=== PATIENT | female | born 1950 | race Caucasian/White ===

== ENCOUNTER → 2017-03-15 | Outpatient (CLI) | payer OTHER ==
--- NOTE | 2017-03-16 02:05 | REP ---
Clinical: Trauma. Contusion. Technique: AP, lateral, bilateral oblique views of the right wrist. Findings: Age-related osteopenia and degenerative changes are appreciated. No acute fracture or dislocation. No subcutaneous emphysema or radiodense foreign body. Impression: Age-related degenerative changes. No obvious acute fracture or dislocation. If the patient remains symptomatic consider presumptive treatment and reevaluation in 5-7 days. Signed by Abdi Sultana MD 03/16/2017 01:56 A
--- NOTE | 2017-03-16 02:11 | REP ---
Clinical: Trauma. Contusion. Technique: AP, lateral, bilateral oblique views right hand . Findings: Age related arthritic changes are appreciated. No acute fracture or dislocation identified. No subcutaneous emphysema or radiodense foreign body. Impression: Age related arthritic changes. No acute fracture or dislocation. Signed by Abdi Sultana MD 03/16/2017 02:02 A
== END ==
LOC: M WUC 10:55
PROVIDERS: ATTEND Physician Assistant
DX: S60.211A Contusion of right wrist, initial encounter (principal); S60.221A Contusion of right hand, initial encounter; X58.XXXA Exposure to other specified factors, initial encounter; Y92.89 Other specified places as the place of occurrence of the external cause; Y93.89 Activity, other specified; Y99.8 Other external cause status

== ENCOUNTER → 2017-06-28 | Outpatient (CLI) | payer OTHER ==
--- NOTE | 2017-06-28 12:39 | REPMRS ---
Patient History The patient states she had a clinical breast exam in 2016.Patient is postmenopausal. Family history of breast cancer in sister at age 50 or over and breast cancer in maternal aunt at age 60. Took hormonal contraceptives for 4 years. Took unspecified hormones for 6 months. Digital Mammo Screening Bilat: June 28, 2017 - Exam #: [id number] Bilateral CC and MLO view(s) were taken. Technologist: Jasmin Moncada, Technologist Prior study comparison: June 24, 2016, digital woman screen mammo, performed at [facility]. June 24, 2015, digital woman screen mammo, performed at [facility]. FINDINGS: There are scattered fibroglandular densities. There has been no change in the appearance of the mammogram from the prior studies. There is a mild amount of residual fibroglandular tissue which is fairly symmetric. There is no interval development of dominant mass, architectural distortion, or clustered microcalcification suggestive of malignancy. ASSESSMENT: BI-RADS/ACR category 1 mammogram. Negative. Recommendation Routine screening mammogram in 1 year (for women over age 40). This mammogram was interpreted with the aid of an FDA-approved computer-aided dectection system. Electronically Signed By: Jose A Rios MD 06/28/17 [id number]
== END ==
LOC: M RAD 11:48
PROVIDERS: ATTEND Obstetrics & Gynecology Gynecology
DX: Z12.31 Encounter for screening mammogram for malignant neoplasm of breast (principal); Z78.0 Asymptomatic menopausal state; Z92.0 Personal history of contraception

== ENCOUNTER → 2017-07-14 | Outpatient (REF) | payer OTHER | LOC: M LAB REF 17:50 | PROVIDERS: ATTEND Family Medicine | DX: R76.8 Other specified abnormal immunological findings in serum (principal) ==

== ENCOUNTER → 2018-01-16 | Outpatient (REF) | payer OTHER ==
[2018-01-18 14:17] LABS: ANTINUCLEAR ANTIBODIES DIRECT Negative (Negative)
== END ==
LOC: M LAB REF 18:00
DX: R76.8 Other specified abnormal immunological findings in serum (principal)

== ENCOUNTER → 2018-06-29 | Outpatient (CLI) | payer MEDICARE, OTHER | LOC: M RAD 10:38 | DX: Z12.31 Encounter for screening mammogram for malignant neoplasm of breast (principal); Z80.3 Family history of malignant neoplasm of breast | CPT/HCPCS: 77067 ==

== ENCOUNTER → 2018-08-01 | Outpatient (REF) | payer MEDICARE, OTHER | LOC: M LAB REF 13:37 | PROVIDERS: ATTEND Physician Assistant | DX: J02.9 Acute pharyngitis, unspecified (principal) ==

== ENCOUNTER 2018-09-07 10:21 | Day surgery (SDC) | payer MEDICARE, OTHER ==
[~2018-09-07] VITALS: Ht 157.5 cm; Wt 67.9 kg
[~2018-09-07 10:21] MED LIST: CALC1TAB26 PO; COLA100C5 PO; COQ-100C2 PO; ESTR0.1C5; FLAX10002 PO; FLON1SPR; LANS15CA; LOTE0.5G OU; MIRA33504 PO; PROAAER10 INH; SIMV20TA2; SYST1SOL OU; TYLE500T78 PO; VITA100067 PO; VITA500T53 PO
[2018-09-07] MEDS ORDERED: PROPOFOL 200 MG/20 ML VIAL As Ordered ONE (10:42)
[2018-09-07] MEDS ORDERED: LIDOCAINE 2% INJ 100 MG/5 ML SDV (FOR ANES.) As Ordered ONE (10:43)
--- NOTE | 2018-09-07 11:15 | ROOR ---
Patient Name: Jacqueline Chandler Procedure Date: 09/07/2018 11:00 AM Date of : 1950 Age: 68 Room: [facility] Gender: Female Note Status: Finalized Procedure: Upper GI endoscopy Indications: Heartburn Providers: Kishore ANDREW MD Referring MD: Ortiz Oliver MD Requesting Provider: Medicines: Monitored Anesthesia Care Complications: No immediate complications. Procedure: Pre-Anesthesia Assessment: - The heart rate, respiratory rate, oxygen saturations, blood pressure, adequacy of pulmonary ventilation, and response to care were monitored throughout the procedure. The Endoscope was introduced through the mouth, and advanced to the second part of duodenum. The upper GI endoscopy was accomplished without difficulty. The patient tolerated the procedure well. Findings: Small Hiatal Hernia. Mild reflux esophagitis. The exam was otherwise without abnormality. Impression: - Small Hiatal Hernia. - Mild esophagitis. - The examination was otherwise normal. - No specimens collected. Recommendation: - Use Prevacid (lansoprazole) 30 mg PO daily. - Follow an antireflux regimen. Kishore Andrew MD Kishore ANDREW MD 09/07/2018 11:15:45 AM This report has been signed electronically. Number of Addenda: 0 Note Initiated On: 09/07/2018 11:00 AM Estimated Blood Loss: Estimated blood loss: none.
--- NOTE | 2018-09-07 11:30 | ROOR ---
Patient Name: Jacqueline Chandler Procedure Date: 09/07/2018 11:02 AM Date of : 1950 Age: 68 Room: [facility] Gender: Female Note Status: Finalized Procedure: Colonoscopy Indications: High risk colon cancer surveillance: Personal history of colonic polyps Providers: Kishore ANDREW MD Referring MD: Ortiz Oliver MD Requesting Provider: Medicines: Monitored Anesthesia Care Complications: No immediate complications. Procedure: Pre-Anesthesia Assessment: - The heart rate, respiratory rate, oxygen saturations, blood pressure, adequacy of pulmonary ventilation, and response to care were monitored throughout the procedure. The Colonoscope was introduced through the anus and advanced to the cecum, identified by appendiceal orifice and ileocecal valve. The colonoscopy was performed without difficulty. The patient tolerated the procedure well. The quality of the bowel preparation was good. Findings: The perianal and digital rectal examinations were normal. A diminutive polyp was found in the splenic flexure. The polyp was sessile. The polyp was removed with a jumbo cold forceps. Resection and retrieval were complete. Internal hemorrhoids were found during retroflexion. The hemorrhoids were medium-sized. Retroflexion in the right colon was performed. The exam was otherwise normal throughout the examined colon. Impression: - One diminutive polyp at the splenic flexure, removed with a jumbo cold forceps. Resected and retrieved. - Internal hemorrhoids. - The exam was otherwise normal to the cecum. Recommendation: - Repeat colonoscopy in 5 years for surveillance. Kishore Andrew MD Kishore ANDREW MD 09/07/2018 11:29:37 AM This report has been signed electronically. Number of Addenda: 0 Note Initiated On: 09/07/2018 11:02 AM Estimated Blood Loss: Estimated blood loss: none.
[2018-09-07 12:00] VITALS: BP 121/65
[2018-09-07] MEDS ORDERED: NS 1,000 ML IV ONE (12:30)
== END 2018-09-07 12:14 | disposition home or self-care (01) ==
LOC: M OPP 10:21
PROVIDERS: ATTEND Internal Medicine Gastroenterology
DX: Z86.010 Personal history of colon polyps (principal); D12.3 Benign neoplasm of transverse colon; K64.8 Other hemorrhoids; Z09 Encounter for follow-up examination after completed treatment for conditions other than malignant neoplasm; R12 Heartburn; K44.9 Diaphragmatic hernia without obstruction or gangrene; K21.9 Gastro-esophageal reflux disease without esophagitis; Z79.899 Other long term (current) drug therapy; Z88.8 Allergy status to other drugs, medicaments and biological substances; Z80.0 Family history of malignant neoplasm of digestive organs; Z80.3 Family history of malignant neoplasm of breast; Z80.1 Family history of malignant neoplasm of trachea, bronchus and lung; Z80.8 Family history of malignant neoplasm of other organs or systems

== ENCOUNTER → 2018-12-13 | Outpatient (CLI) | payer MEDICARE, OTHER ==
[~2018-12-13] MED LIST changes: +VITA500T17 PO; -VITA500T53 PO
--- NOTE | 2018-12-14 10:25 | REP ---
Chest two views HISTORY: Mid back pain Comparison: 09/30/2014 The lungs are clear. The heart is normal in size. The pulmonary vasculature is normal in appearance. The bony structure is intact. IMPRESSION: No acute disease. Electronically Signed by Mateusz Berman MD 12/14/2018 09:29 A
== END ==
LOC: M WUC 18:45
PROVIDERS: ATTEND Nurse Practitioner Family
DX: M54.9 Dorsalgia, unspecified (principal)

== ENCOUNTER → 2020-03-12 | Outpatient (REF) | payer MEDICARE, OTHER ==
[~2020-03-12] MED LIST changes: -SIMV20TA2; +SIMV20TA22
[2020-04-16 13:52] LABS: ANTINUCLEAR ANTIBODIES DIRECT See Separate Report; CYCLIC CITRULLINATED PEPTIDE See Separate Report UNITS
== END ==
LOC: M LAB REF 15:33
PROVIDERS: ATTEND Family Medicine
DX: R76.8 Other specified abnormal immunological findings in serum (principal)

== ENCOUNTER → 2020-10-13 | Outpatient (REF) | payer MEDICARE, OTHER ==
[2020-10-13 18:22] LABS: AMYLASE 50 U/L (25-115); LIPASE 147 U/L (73-393)
== END ==
LOC: M LAB REF 16:15
PROVIDERS: ATTEND Family Medicine
DX: R10.12 Left upper quadrant pain (principal)

== ENCOUNTER → 2020-10-23 | Outpatient (CLI) | payer MEDICARE, OTHER ==
[~2020-10-23] MED LIST changes: +GASTROGRAFIN SOLUTION 30ML (Q9963) As Ordered ONE; +ISOVUE-370 76% 100ML VIAL As Ordered ONE
--- NOTE | 2020-10-23 15:36 | REP ---
INDICATION: LUQ ABD PAIN. COMPARISON: None TECHNIQUE: Axial contrast-enhanced images of the abdomen using oral and 100 cc Isovue 370 intravenous contrast material. Precontrast images of the abdomen along with coronal and sagittal reformations obtained. This CT examination was performed using the following dose reduction techniques: Automated exposure control, adjustment of mA and/or kv according to the patient's size, and the use of iterative reconstruction technique. FINDINGS: Liver demonstrates multiple benign appearing cysts measuring up to 2.5 cm along with mild diffuse fatty infiltration. Spleen, pancreas, gallbladder, and bilateral adrenal glands are normal. Right kidney demonstrates 1 cm hypodensity likely representing cyst. Left kidney includes 10 cm upper pole cyst extending to the left upper quadrant. The kidneys are otherwise normal and without hydronephrosis or perinephric stranding and no nephroureterolithiasis. Visualized portions of the enteric system are normal. No ascites. No free air. No adenopathy. Abdominal aorta without aneurysm. Skeletal structures without acute process. Lung bases are clear. IMPRESSION: 1. Large 10 cm left renal cyst likely related to patient's symptoms. 1 cm right renal hypodensity likely cyst may warrant ultrasound follow-up. 2. Benign-appearing hepatic cysts. <Electronically signed by Abdi Sultana > 10/23/20 [id number]
== END ==
LOC: M RAD 13:39
PROVIDERS: ATTEND Family Medicine
DX: N28.1 Cyst of kidney, acquired (principal); R10.12 Left upper quadrant pain; D13.4 Benign neoplasm of liver
CPT/HCPCS: 74170; Q9963; Q9967

== ENCOUNTER → 2021-01-01 | Outpatient (CLI) | payer MEDICARE, OTHER ==
[~2021-01-01] MED LIST changes: +ACET-841 PO; +CETI10TA8 PO; +COQ-100C5 PO; +ESTR1MIS PV; -GASTROGRAFIN SOLUTION 30ML (Q9963) As Ordered ONE; -ISOVUE-370 76% 100ML VIAL As Ordered ONE; +LACT3000 PO; +MIRA3350 PO; +OSTE5TAB PO; +PROBCAP14 PO; +SIME125T PO; +[UNRECOGNIZED DRUG - OTHER]; +[UNRECOGNIZED DRUG - OTHER] TOP
== END ==
LOC: M LABSMTC 10:16
PROVIDERS: ATTEND Anesthesiology
DX: Z01.812 Encounter for preprocedural laboratory examination (principal)

== ENCOUNTER → 2021-01-06 | Day surgery (SDC) | payer MEDICARE, OTHER ==
[~2021-01-06] VITALS: Ht 157.5 cm; Wt 67.6 kg
[~2021-01-06] MED LIST changes: +LIDOCAINE 2% 100MG/5ML SDV (FOR ANES.) As Ordered ONE; +NS 1,000 ML IV ONE; +fentaNYL 100 MCG/2 ML INJECTION (J3010) As Ordered ONE; +propofoL 200 MG/20 ML VIAL As Ordered ONE
--- NOTE | 2021-01-06 12:13 | ROOR ---
Patient Name: Jacqueline Chandler Procedure Date: 01/06/2021 12:00 PM Date of : 1950 Age: 70 Room: [facility] Gender: Female Note Status: Finalized Procedure: Upper GI endoscopy Indications: Abdominal pain in the left upper quadrant, Heartburn Providers: Kishore Andrew MD Referring MD: Ortiz Oliver MD Requesting Provider: Medicines: Monitored Anesthesia Care Complications: No immediate complications. Procedure: Pre-Anesthesia Assessment: - The heart rate, respiratory rate, oxygen saturations, blood pressure, adequacy of pulmonary ventilation, and response to care were monitored throughout the procedure. The Endoscope was introduced through the mouth, and advanced to the second part of duodenum. The upper GI endoscopy was accomplished without difficulty. The patient tolerated the procedure well. Findings: Small Hiatal Hernia. The stomach was otherwise normal. The esophagus was normal. The esophagus was normal. The examined duodenum was normal. Impression: - Normal esophagus. - Small Hiatal Hernia, otherwise normal stomach. - Normal examined duodenum. - No specimens collected. Recommendation: - Observe patient's clinical course. - Follow an antireflux regimen. Procedure Code(s): --- Professional --- 06057, Esophagogastroduodenoscopy, flexible, transoral; diagnostic, including collection of specimen(s) by brushing or washing, when performed (separate procedure) Diagnosis Code(s): --- Professional --- R12, Heartburn R10.12, Left upper quadrant pain CPT copyright 2019 [employer]. All rights reserved. The codes documented in this report are preliminary and upon solar energy advisor review may be revised to meet current compliance requirements. Kishore Andrew MD Kishore Andrew MD 01/06/2021 12:13:24 PM Electronically signed by Kishore Andrew MD Number of Addenda: 0 Note Initiated On: 01/06/2021 12:00 PM Estimated Blood Loss: Estimated blood loss: none.
--- NOTE | 2021-01-06 12:36 | ROOR ---
Patient Name: Jacqueline Chandler Procedure Date: 01/06/2021 12:01 PM Date of : 1950 Age: 70 Room: [facility] Gender: Female Note Status: Finalized Procedure: Colonoscopy Indications: Abdominal pain in the left lower quadrant, Abdominal pain in the left upper quadrant Providers: Kishore Andrew MD Referring MD: Ortiz Oliver MD Requesting Provider: Medicines: Monitored Anesthesia Care Complications: No immediate complications. Procedure: Pre-Anesthesia Assessment: - The heart rate, respiratory rate, oxygen saturations, blood pressure, adequacy of pulmonary ventilation, and response to care were monitored throughout the procedure. The Colonoscope was introduced through the anus and advanced to the terminal ileum, with identification of the appendiceal orifice and IC valve. The colonoscopy was performed without difficulty. The patient tolerated the procedure well. The quality of the bowel preparation was good. Findings: The perianal and digital rectal examinations were normal. Two sessile polyps were found in the distal transverse colon. The polyps were 3 to 5 mm in size. These polyps were removed with a cold snare. Resection and retrieval were complete. Multiple medium-mouthed diverticula were found in the sigmoid colon. Moderate internal hemorrhoids. Impression: - Two 3 to 5 mm polyps in the transverse colon, removed with a cold snare. Resected and retrieved. - Diverticulosis in the sigmoid colon. - Moderate internal hemorrhoids. - The examination was otherwise normal. Recommendation: - Repeat colonoscopy in 3 - 5 years for surveillance based on pathology results. - Telephone endoscopist for pathology results in 2 weeks. Procedure Code(s): --- Professional --- 88984, Colonoscopy, flexible; with removal of tumor(s), polyp(s), or other lesion(s) by snare technique Diagnosis Code(s): --- Professional --- K57.30, Diverticulosis of large intestine without perforation or abscess without bleeding R10.12, Left upper quadrant pain R10.32, Left lower quadrant pain K63.5, Polyp of colon CPT copyright 2019 [employer]. All rights reserved. The codes documented in this report are preliminary and upon neon glass bender review may be revised to meet current compliance requirements. Kishore Andrew MD Kishore Andrew MD 01/06/2021 12:36:25 PM Electronically signed by Kishore Andrew MD Number of Addenda: 0 Note Initiated On: 01/06/2021 12:01 PM Estimated Blood Loss: Estimated blood loss: none.
[2021-01-06 13:06] VITALS: BP 149/67
== END | disposition home or self-care (01) ==
LOC: M OPP 10:09
PROVIDERS: ATTEND Internal Medicine Gastroenterology
DX: D12.3 Benign neoplasm of transverse colon (principal); K57.30 Diverticulosis of large intestine without perforation or abscess without bleeding; R10.12 Left upper quadrant pain; R10.32 Left lower quadrant pain; K44.9 Diaphragmatic hernia without obstruction or gangrene; R12 Heartburn; K58.0 Irritable bowel syndrome with diarrhea; D68.311 Acquired hemophilia; Z79.899 Other long term (current) drug therapy; Z88.8 Allergy status to other drugs, medicaments and biological substances
CPT/HCPCS: 43235; 45385; 88305; J3010

== ENCOUNTER → 2021-09-28 | Outpatient (CLI) | payer MEDICARE, OTHER ==
[~2021-09-28] MED LIST changes: +CETI-25 PO; -CETI10TA8 PO; -LIDOCAINE 2% 100MG/5ML SDV (FOR ANES.) As Ordered ONE; -NS 1,000 ML IV ONE; -fentaNYL 100 MCG/2 ML INJECTION (J3010) As Ordered ONE; -propofoL 200 MG/20 ML VIAL As Ordered ONE
[2021-09-28 13:38] LABS: BACTERIA, URINE AUTO NEGATIVE (NEGATIVE); RBC, URINE AUTO 1 /HPF (0-3); SQUAMOUS EPITHELIAL CELL UR AU 1 /HPF (0-6); WBC, URINE AUTO 1 /HPF (0-3)
== END ==
LOC: M LAB 12:45
PROVIDERS: ATTEND Urology
DX: R31.29 Other microscopic hematuria (principal)

== ENCOUNTER → 2022-01-20 | Outpatient (REF) | payer MEDICARE, OTHER | LOC: M LAB REF 16:26 | PROVIDERS: ATTEND Physician Assistant | DX: R06.02 Shortness of breath (principal) ==

== ENCOUNTER → 2022-01-20 | Outpatient (CLI) | payer MEDICARE, OTHER | LOC: M WUC 13:29 | PROVIDERS: ATTEND Physician Assistant | DX: R06.02 Shortness of breath (principal) ==

== ENCOUNTER → 2022-05-14 | Outpatient (REF) | payer MEDICARE, OTHER ==
[~2022-05-14] MED LIST changes: -LACT3000 PO; +LACT30006 PO
[2022-05-17 09:18] LABS: BLOOD UREA NITROGEN 13 MG/DL (7-18); CALCIUM LEVEL 9.7 MG/DL (8.8-10.2); CARBON DIOXIDE LEVEL 30 MEQ/L (21-32); CHLORIDE LEVEL 104 MEQ/L (98-107); CREATININE FOR GFR 0.56 MG/DL (0.55-1.30); GLOMERULAR FILTRATION RATE > 60.0 (>45); GLUCOSE, FASTING 92 MG/DL (70-100); POTASSIUM SERUM 4.5 MEQ/L (3.5-5.1); SODIUM LEVEL 139 MEQ/L (136-145)
== END ==
LOC: M LAB REF 09:00
PROVIDERS: ATTEND Family Medicine
DX: Z01.818 Encounter for other preprocedural examination (principal)

== ENCOUNTER → 2022-06-01 | Outpatient (REF) | payer MEDICARE, OTHER ==
[2022-06-01 12:22] LABS: APPEARANCE, URINE MANUAL HAZY (CLEAR); BILIRUBIN, URINE MANUAL NEGATIVE (NEGATIVE); COLOR, URINE MANUAL YELLOW (YELLOW); GLUCOSE, URINE (UA) MANUAL NEGATIVE (NEGATIVE); KETONE, URINE MANUAL NEGATIVE (NEGATIVE); PH,URINE MAN 5.5 UNITS (5.0 - 7.0); PROTEIN, URINE MANUAL TRACE mg/dL (NEGATIVE); SPECIFIC GRAVITY,URINE MANUAL 1.015 (1.002-1.035); UROBILINOGEN, URINE MANUAL NORMAL (NORMAL)
[2022-06-01 12:23] LABS: BLOOD URINE MANUAL TRACE (NEGATIVE); LEUKOCYTE ESTERASE, URINE MAN POSITIVE (NEGATIVE); NITRITE, URINE MANUAL NEGATIVE (NEGATIVE)
[2022-06-01 12:34] LABS: BACTERIA, URINE MOD AMOUNT; HYALINE CAST, URINE NONE SEEN /lpf (0-1); RBC, URINE 0-1 /hpf (0-3); SQUAMOUS EPITHELIAL CELL URINE LARGE AMOUNT /hpf (SMALL AMT)
== END ==
LOC: M LAB REF 11:39
PROVIDERS: ATTEND Family Medicine
DX: R30.0 Dysuria (principal)

== ENCOUNTER → 2022-07-19 | Outpatient (REF) | payer MEDICARE, OTHER ==
[2022-07-19 17:52] LABS: RHEUMATOID FACTOR QUANT < 3.5 IU/ML (<14)
[2022-07-21 23:09] LABS: ANA (HEP2) Positive (.); CYCLIC CITRULLINATED PEPTIDE 3 units (0-19)
== END ==
LOC: M LAB REF 16:13
PROVIDERS: ATTEND Family Medicine
DX: R76.8 Other specified abnormal immunological findings in serum (principal); M25.50 Pain in unspecified joint; H04.123 Dry eye syndrome of bilateral lacrimal glands

== ENCOUNTER 2022-07-25 20:27 | Emergency (ER) | payer MEDICARE, OTHER ==
[2022-07-25 21:38] LABS: BASO % 0.3 % (0.0-1.0); EOS # 0.1 10^3/uL (0.0-0.5); EOS % 0.8 % (0.0-3.0); HEMATOCRIT 38.7 % (36.0-47.0); HEMOGLOBIN 12.9 g/dl (12.0-15.5); LYMPH # 1.3 10^3/uL (1.5-5.0); LYMPH % 9.1 % (24.0-44.0); MEAN CORPUSCULAR HEMOGLOBIN 30.6 pg (27.0-33.0); MEAN CORPUSCULAR HGB CONC 33.3 g/dl (32.0-36.5); MEAN CORPUSCULAR VOLUME 91.9 fl (80.0-96.0); MONO # 0.6 10^3/uL (0.0-0.8); MONO % 4.3 % (2.0-8.0); NEUTROPHILS % 84.9 % (36.0-66.0); PLATELET COUNT, AUTOMATED 257 10^3/uL (150-450); RED BLOOD COUNT 4.21 10^6/uL (4.00-5.40); WHITE BLOOD COUNT 14.2 10^3/uL (4.0-10.0)
[2022-07-25 22:02] LABS: CK-MB VALUE MASS 1.3 NG/ML (<3.6)
[2022-07-25 22:03] LABS: BLOOD UREA NITROGEN 15 MG/DL (9-23); CALCIUM LEVEL 9.4 MG/DL (8.3-10.6); CARBON DIOXIDE LEVEL 27 MMOL/L (20-31); CHLORIDE LEVEL 103 MMOL/L (98-107); CPK CREATINE PHOSPHOKINASE 76 U/L (34-145); GLOMERULAR FILTRATION RATE > 60.0 (>45); GLUCOSE, FASTING 143 MG/DL (74-106); MB/CK RELATIVE INDEX 1.71 (< OR =4); POTASSIUM SERUM 4.2 MMOL/L (3.5-5.1); SODIUM LEVEL 141 MMOL/L (136-145)
[2022-07-26 04:08] LABS: CK-MB VALUE MASS < 1.0 NG/ML (<3.6)
[2022-07-26 04:09] LABS: CPK CREATINE PHOSPHOKINASE 65 U/L (34-145); MB/CK RELATIVE INDEX 1.53 (< OR =4)
[2022-07-26 04:33] VITALS: BP 130/63
== END 2022-07-26 04:41 | disposition home or self-care (01) ==
LOC: M ED 20:27
DX: R51.9 Headache, unspecified (principal); T46.5X5A Adverse effect of other antihypertensive drugs, initial encounter; Z86.79 Personal history of other diseases of the circulatory system; Z95.5 Presence of coronary angioplasty implant and graft; Z88.8 Allergy status to other drugs, medicaments and biological substances

== ENCOUNTER → 2022-09-12 | Outpatient (REF) | payer MEDICARE, OTHER | LOC: M WUC 18:50 | PROVIDERS: ATTEND Physician Assistant | DX: Z20.828 Contact with and (suspected) exposure to other viral communicable diseases (principal); J06.9 Acute upper respiratory infection, unspecified ==

== ENCOUNTER → 2023-02-02 | Outpatient (CLI) | payer MEDICARE, OTHER | LOC: M WUC 13:00 | PROVIDERS: ATTEND Family Medicine | DX: M51.36 Other intervertebral disc degeneration, lumbar region (principal); M51.34 Other intervertebral disc degeneration, thoracic region; M43.16 Spondylolisthesis, lumbar region ==

== ENCOUNTER → 2023-05-28 | Outpatient (CLI) | payer MEDICARE, OTHER ==
[~2023-05-28] MED LIST changes: -ESTR1MIS PV; +ESTR1VAG3 PV
== END ==
LOC: M RAD 11:46
PROVIDERS: ATTEND Family Medicine
DX: R05.9 Cough, unspecified (principal); R06.2 Wheezing; R06.02 Shortness of breath

== ENCOUNTER → 2023-07-20 | Outpatient (REF) | payer MEDICARE, OTHER ==
[2023-07-20 17:38] LABS: COMPLEMENT C3 138.7 MG/DL (90.0-170.0)
[2023-07-20 17:39] LABS: COMPLEMENT C4 31.2 MG/DL (12-36); RHEUMATOID FACTOR QUANT < 3.5 IU/ML (<14); TOTAL 25(OH) VITAMIN D 63.6 NG/ML (20.0-100.0)
== END ==
LOC: M LAB REF 16:34
PROVIDERS: ATTEND Family Medicine
DX: E55.9 Vitamin D deficiency, unspecified (principal); M35.9 Systemic involvement of connective tissue, unspecified

== ENCOUNTER → 2023-07-28 | Outpatient (REF) | payer MEDICARE, OTHER | LOC: M LAB REF 12:23 | PROVIDERS: ATTEND Family Medicine | DX: R32 Unspecified urinary incontinence (principal) ==

== ENCOUNTER 2023-08-07 13:21 | Emergency (ER) | payer MEDICARE, OTHER ==
[~2023-08-07] VITALS: Ht 154.9 cm; Wt 67.3 kg
[2023-08-07] MEDS ORDERED: NITROGLYCERIN 2% OINT 1 GM *U/D* PKT TOP ONE (13:50)
[2023-08-07 14:11] VITALS: BP 166/77
[2023-08-07 14:19] LABS: BASO % 0.4 % (0.0-1.0); EOS # 0.1 10^3/uL (0.0-0.5); EOS % 0.8 % (0.0-3.0); HEMATOCRIT 38.9 % (36.0-47.0); HEMOGLOBIN 13.4 g/dl (12.0-15.5); LYMPH # 1.1 10^3/uL (1.5-5.0); LYMPH % 14.8 % (24.0-44.0); MEAN CORPUSCULAR HEMOGLOBIN 30.5 pg (27.0-33.0); MEAN CORPUSCULAR HGB CONC 34.4 g/dl (32.0-36.5); MEAN CORPUSCULAR VOLUME 88.4 fl (80.0-96.0); MONO # 0.3 10^3/uL (0.0-0.8); MONO % 3.5 % (2.0-8.0); NEUTROPHILS # 6.1 10^3/uL (1.5-8.5); PLATELET COUNT, AUTOMATED 226 10^3/uL (150-450); WHITE BLOOD COUNT 7.7 10^3/uL (4.0-10.0)
[2023-08-07] MEDS ORDERED: ISOVUE-370 76% 100ML VIAL As Ordered ONE (14:30)
[2023-08-07 14:35] LABS: INR 0.97; PROTHROMBIN TIME 12.6 SECONDS (12.5-14.5); THYROID STIMULATING HORMONE 1.335 uIU/ML (0.55-4.78)
[2023-08-07 14:36] LABS: PARTIAL THROMBOPLASTIN TIME 26.4 SECONDS (24.8-34.2)
[2023-08-07 14:39] LABS: ALBUMIN 4.2 G/DL (3.2-5.2); ALKALINE PHOSPHATASE 71 U/L (46-116); ALT/SGPT 27 U/L (7.0-40); AST/SGOT 48 U/L (<34); BILIRUBIN,DIRECT 0.3 MG/DL (<0.4); BILIRUBIN,TOTAL 1.2 MG/DL (0.3-1.2); BLOOD UREA NITROGEN 11 MG/DL (9-23); CALCIUM LEVEL 9.4 MG/DL (8.3-10.6); CARBON DIOXIDE LEVEL 24 MMOL/L (20-31); CHLORIDE LEVEL 105 MMOL/L (98-107); CK-MB VALUE MASS < 1.0 NG/ML (<3.6); CPK CREATINE PHOSPHOKINASE 92 U/L (34-145); CREATININE FOR GFR 0.42 MG/DL (0.55-1.30); GLOMERULAR FILTRATION RATE > 60.0 (>39); GLUCOSE, FASTING 134 MG/DL (74-106); LIPASE 40 U/L (12-53); MB/CK RELATIVE INDEX 1.08 (< OR =4); POTASSIUM SERUM 5.4 MMOL/L (3.5-5.1); RSV AMPLIFICATION NEGATIVE (NEGATIVE); SODIUM LEVEL 138 MMOL/L (136-145); TOTAL PROTEIN 6.2 G/DL (5.7-8.2)
[2023-08-07] MEDS ORDERED: NS 500 ML IV ONE (16:10)
[2023-08-07 16:50] LABS: CK-MB VALUE MASS < 1.0 NG/ML (<3.6)
[2023-08-07 16:52] LABS: CPK CREATINE PHOSPHOKINASE 64 U/L (34-145); MB/CK RELATIVE INDEX 1.56 (< OR =4)
[2023-08-07 17:59] LABS: CK-MB VALUE MASS < 1.0 NG/ML (<3.6)
[2023-08-07 18:01] LABS: CPK CREATINE PHOSPHOKINASE 51 U/L (34-145); MB/CK RELATIVE INDEX 1.96 (< OR =4)
[2023-08-07 18:15] VITALS: O2SAT 98
[2023-08-07 18:30] VITALS: BP 138/69; TEMP 97.8
== END 2023-08-07 18:42 | disposition home or self-care (01) ==
LOC: M ED 13:21
DX: R07.9 Chest pain, unspecified (principal); E78.5 Hyperlipidemia, unspecified; M54.50 Low back pain, unspecified; Z86.79 Personal history of other diseases of the circulatory system; Z88.6 Allergy status to analgesic agent; Z88.8 Allergy status to other drugs, medicaments and biological substances; Z79.01 Long term (current) use of anticoagulants; Z79.52 Long term (current) use of systemic steroids; Z79.899 Other long term (current) drug therapy
CPT/HCPCS: 71045; 71275; 80047; 80048; 80076; 82550; 82553; 83690; 84439; 84443; 84484; 85025; 85610; 85730; 87631; 93005; 93041; 94760; 96360; 99285; Q9967

== ENCOUNTER → 2025-04-09 | Outpatient (CLI) | payer MEDICARE, OTHER ==
[~2025-04-09] MED LIST changes: +E-Z-GAS II EFFERVESCENT PACKET (SODIUM BICARB./CITRIC ACID/SIMETHICONE) As Ordered ONE; +E-Z-HD 98% w/w 340 GM SUSP BTL As Ordered ONE; +E-Z-PAQUE 96% w/w SUSP 176 GM BTL As Ordered ONE; -VITA500T17 PO; +VITA500T8 PO
== END ==
LOC: M RAD 07:43
PROVIDERS: ATTEND Internal Medicine Gastroenterology
DX: R13.10 Dysphagia, unspecified (principal); R14.3 Flatulence; R10.30 Lower abdominal pain, unspecified; K21.9 Gastro-esophageal reflux disease without esophagitis; K44.9 Diaphragmatic hernia without obstruction or gangrene

== ENCOUNTER → 2025-05-22 | Outpatient (CLI) | payer MEDICARE, OTHER ==
[~2025-05-22] MED LIST changes: -E-Z-GAS II EFFERVESCENT PACKET (SODIUM BICARB./CITRIC ACID/SIMETHICONE) As Ordered ONE; -E-Z-HD 98% w/w 340 GM SUSP BTL As Ordered ONE; -E-Z-PAQUE 96% w/w SUSP 176 GM BTL As Ordered ONE
[2025-05-22 15:12] LABS: CALCIUM LEVEL 9.1 MG/DL (8.3-10.6); CARBON DIOXIDE LEVEL 30 MMOL/L (20-31); CHLORIDE LEVEL 100 MMOL/L (98-107); CREATININE FOR GFR 0.63 MG/DL (0.55-1.30); GLOMERULAR FILTRATION RATE > 90.0 (>39); MAGNESIUM LEVEL 2.0 MG/DL (1.8-2.4); POTASSIUM SERUM 3.9 MMOL/L (3.5-5.1); SODIUM LEVEL 137 MMOL/L (136-145)
[2025-05-22 15:15] LABS: TOTAL 25(OH) VITAMIN D 48.8 NG/ML (20.0-100.0)
== END ==
LOC: M LAB 14:01
PROVIDERS: ATTEND Internal Medicine Gastroenterology
DX: K44.9 Diaphragmatic hernia without obstruction or gangrene (principal); R14.3 Flatulence; K58.9 Irritable bowel syndrome, unspecified; M81.0 Age-related osteoporosis without current pathological fracture

== ENCOUNTER 2025-07-19 11:11 | Emergency (ER) | payer MEDICARE, OTHER ==
[~2025-07-19] VITALS: Ht 157.5 cm; Wt 65.0 kg
[2025-07-19] MEDS ORDERED: MECL-86 (11:39)
[2025-07-19] MEDS ORDERED: RANO10002 (11:39)
[2025-07-19] MEDS ORDERED: METO1TAB32 (11:39)
[2025-07-19] MEDS ORDERED: CLAR5TAB11 PO (11:39)
[2025-07-19] MEDS ORDERED: CYCL1DRO10 (11:39)
[2025-07-19] MEDS ORDERED: CRES40TA PO (11:39)
[2025-07-19] MEDS ORDERED: AMLO2.5T3 (11:39)
[2025-07-19] MEDS ORDERED: VARE0.03 (11:39)
[2025-07-19] MEDS ORDERED: NITR0.4S14 (11:41)
[2025-07-19] MEDS ORDERED: COLA100C5 PO (11:42)
[2025-07-19] MEDS ORDERED: ASPI81CH33 PO (11:42)
[2025-07-19 14:03] VITALS: BP 140/70; TEMP 97.1; O2SAT 97
== END 2025-07-19 14:04 | disposition home or self-care (01) ==
LOC: M ED 11:11
DX: S00.03XA Contusion of scalp, initial encounter (principal); M50.30 Other cervical disc degeneration, unspecified cervical region; M43.12 Spondylolisthesis, cervical region; W00.0XXA Fall on same level due to ice and snow, initial encounter; I10 Essential (primary) hypertension; K21.9 Gastro-esophageal reflux disease without esophagitis; E78.5 Hyperlipidemia, unspecified; Z86.79 Personal history of other diseases of the circulatory system; Z79.82 Long term (current) use of aspirin; Z88.8 Allergy status to other drugs, medicaments and biological substances; Y92.9 Unspecified place or not applicable; Y93.89 Activity, other specified; Y99.9 Unspecified external cause status; Z79.899 Other long term (current) drug therapy; Z79.52 Long term (current) use of systemic steroids